=== PATIENT | male | born 1960 | race Caucasian/White ===

== ENCOUNTER → 2017-07-27 | Outpatient (CLI) | payer OTHER ==
--- NOTE | 2017-07-29 09:16 | XR ---
EXAMINATION TYPE: XR knee complete RT DATE OF EXAM: 07/27/2017 COMPARISON: NONE HISTORY: Chronic knee pain TECHNIQUE: Four views are submitted. FINDINGS: Osseous structures are intact. No acute fracture seen. Deformity of the proximal fibula appears chr onic. There is narrowing of the joint spaces. Mild hypertrophic changes seen. IMPRESSION: 1. No acute fracture or dislocation. Related for osteoarthritis. Could not exclude osteochondritis d issecans of the medial femoral condyle. Consider MRI follow-up.
== END | disposition home or self-care (01) ==
LOC: RADXRYALE 16:05
PROVIDERS: ATTEND Family Medicine
DX: M25.561 Pain in right knee (principal)

== ENCOUNTER → 2018-02-17 | Outpatient (CLI) | payer OTHER ==
--- NOTE | 2018-02-19 08:34 | MR ---
EXAMINATION TYPE: MR knee RT wo con DATE OF EXAM: 02/17/2018 COMPARISON: Outside radiographs of the right knee dated 02/01/2018. Right knee radiographs dated 017 (tricompartmental arthropathy) HISTORY: Right knee pain located behind the knee with knee swelling. No prior surgery. TECHNIQUE: Multiplanar, multisequence imaging of the right knee is performed without IV contrast. FINDINGS: MEDIAL MENISCUS: There is an obliquely oriented tear of the posterior horn of the medial meniscus wit h extension into the meniscal body as there is undulation of the meniscal body and cranial component. There is associated 4 mm mm meniscal extrusion Anterior horn and anterior root are intact and unrema rkable in signal as well as morphology. LATERAL MENISCUS: Anterior and posterior horns are intact without tear. CRUCIATE LIGAMENTS: The anterior and posterior cruciate ligaments are intact although there is abnorm al signal of the anterior cruciate ligament throughout indicative of mucoid degeneration. COLLATERAL LIGAMENTS: The medial collateral ligament and lateral collateral ligament complex are inta ct and unremarkable. Very minimal increased signal is seen superficial to the medial collateral ligam ent. EXTENSOR MECHANISM: Visualized quadriceps and patellar tendons are intact. EFFUSION: There is a small suprapatellar joint effusion without internal complexity POPLITEAL CYST: No significant popliteal/neves cyst. TRICOMPARTMENT SPACES: There is medial compartment joint space narrowing and small marginal osteophyt es of the tricompartmental spaces. The trochlear inclination angle is 21 degrees and no trochlear dys plasia is identified although there is slight medialization of the patellar apex. Retinacula appear i ntact. CARTILAGE: There is a large full-thickness cartilaginous defect of the weightbearing surface of the m edial femoral condyle measuring 2.8 x 1.8 cm. Multifocal fissuring and undermining are seen of the la teral femoral condylar cartilage with underlying subchondral cyst formation. There is slight signal h eterogeneity of the trochlear cartilage. Patellar cartilage is intact. BONE MARROW SIGNAL: Subchondral cysts are seen within the lateral femoral condyle and intercondylar n otch. A solitary small subchondral cyst is also seen within the medial femoral condyle. IMPRESSION: 1. Obliquely oriented tear of the posterior horn of the medial meniscus with 4 mm of associated menis derek extrusion and radial tear of the meniscal body. No extent into the meniscal root. 2. Tricompartmental chondrosis and moderate arthrosis with full-thickness cartilaginous defect of the weightbearing surface of the medial femoral condyle measuring 2.8 x 1.8 cm and multifocal fissuring as well as undermining of the lateral femoral condyle with subchondral cyst formation. 3. Medialization of the patellar apex without evidence of trochlear dysplasia nor retinacular tear. O nly mild trochlear chondrosis is seen. 4. Diffuse abnormal signal of the anterior cruciate ligament indicative of mucoid degeneration withou t tear. 5. Scant amount of fluid superficial to the medial collateral ligament that could relate to minimal M CL bursitis. 6. Small uncomplicated suprapatellar joint effusion.
== END | disposition home or self-care (01) ==
LOC: RADMRIMAIN 14:46
PROVIDERS: ATTEND Orthopaedic Surgery
DX: S83.241A Other tear of medial meniscus, current injury, right knee, initial encounter (principal); M17.11 Unilateral primary osteoarthritis, right knee

== ENCOUNTER → 2019-10-19 | Outpatient (CLI) | payer OTHER ==
--- NOTE | 2019-10-19 10:31 | MR ---
MR brain without contrast HISTORY: Mild cognitive measurement, memory loss Of the plantar multisequence imaging obtained through the brain Correlation to prior MR brain dated 06/28/2011 There is no restricted diffusion. No hemorrhage or hydrocephalus. There are 3-5 hyperintensities in t he subcortical, periventricular white matter on inversion recovery T2-weighted sequences. Corpus call osum, pituitary, cervical medullary junction, cerebellopontine angles are unremarkable. There is no h emorrhage or hydrocephalus. There are normal vascular flow voids. Inflammatory change present in the mastoid air cells right greater than left, maxillary sinuses right greater than left, ethmoid air lubna ls and frontal sinus. Orbits show symmetric appearance. IMPRESSION: Nonspecific white matter demyelination could be related to migraine headaches, hypertensi on vasculitis, Lyme disease, multiple sclerosis felt to be less likely. Sinus disease, correlate for mastoiditis.
--- NOTE | 2019-10-19 13:49 | US ---
EXAMINATION TYPE: US carotid duplex BILAT DATE OF EXAM: 10/19/2019 COMPARISON: Prior carotid Doppler 06/28/2011 CLINICAL HISTORY: Mild Cognitive Impairment G31.84,R42 Dizziness. DIZZY, FINGER NUMBNESS, NO H/O STRO KE EXAM MEASUREMENTS: RIGHT: Peak Systolic Velocity (PSV) cm/sec ----- Right CCA: 84.1 ----- Right ICA: 106.6 ----- Right ECA: 92.2 ICA/CCA ratio: 1.3 RIGHT: End Diastole cm/sec ----- Right CCA: 29.1 ----- Right ICA: 43.1 ----- Right ECA: 28.5 LEFT: Peak Systolic Velocity (PSV) cm/sec ----- Left CCA: 74.5 ----- Left ICA: 114.2 ----- Left ECA: 118.7 ICA/CCA ratio: 1.5 LEFT: End Diastole cm/sec ----- Left CCA: 29.9 ----- Left ICA: 64.6 ----- Left ECA: 33.2 VERTEBRALS (direction of flow): Right Vertebral: Antegrade Left Vertebral: Antegrade Rhythm: Normal Mild homogeneous plaque seen, with no significant stenosis. Grayscale, color Doppler, spectral Doppler imaging performed of the carotid arteries. Waveform analys is does not show significant stenosis of the internal carotid arteries by Doppler criteria. IMPRESSION: No hemodynamic significant stenosis of the proximal internal carotid arteries by Doppler criteria, an indirect measurement of carotid stenosis
== END | disposition home or self-care (01) ==
LOC: RADMRIMAIN 08:50
PROVIDERS: ATTEND Family Medicine
DX: G37.8 Other specified demyelinating diseases of central nervous system (principal); G31.84 Mild cognitive impairment of uncertain or unknown etiology
CPT/HCPCS: 70551; 93880

== ENCOUNTER → 2019-10-19 | Outpatient (CLI) | payer OTHER ==
--- NOTE | 2019-10-19 14:14 | ECHOS ---
STRESS ECHOCARDIOGRAM INDICATIONS: Dizziness BASELINE HEART RATE: 61 BASELINE BLOOD PRESSURE: 179/90 MAXIMUM HEART RATE: 142 MAXIMUM BLOOD PRESSURE: 200/68 85% MPHR: 137 100% MPHR: 161 METS: 9.1 MAXIMUM STAGE REACHED: 3 TOTAL EXERCISE TIME: 7:30 CLINICAL INFORMATION: STRESS DATA: Heart rate 61, pressure is 179/90 mmHg. Baseline EKG showed sinus mechanism. The patient exercised on the treadmill according to He protocol for a total of 7 minutes and achieved 9.1 METS. Max heart rate was 142, which is about 88% of maximum predicted heart rate. Maximum blood pressure was 200/68 mmHg. Clinically, the patient did not have any symptoms. The EKG did not show any significant ST or T- wave abnormalities concerning for ischemia. ECHOCARDIOGRAM IMAGES: On echo from parasternal long axis view, parasternal short axis view, apical 4 chamber and apical 2 chamber were obtained as the baseline images, at the peak of the heart rate as well as on recovery and the echocardiogram images showed good augmentation in the left ventricular systolic function without any evidence of wall motion abnormalities concerning for ischemia. CONCLUSION: 1. Good exercise tolerance. 2. Normal EKG in response to exercise. 3. Normal echocardiogram in response to exercise. 4. Essentially normal stress echocardiogram for the patient. MMODL / IJN: [id number] /
== END | disposition home or self-care (01) ==
LOC: RADNMMAIN 08:54
PROVIDERS: ATTEND Family Medicine
DX: R42 Dizziness and giddiness (principal); G31.84 Mild cognitive impairment of uncertain or unknown etiology
CPT/HCPCS: 93351

== ENCOUNTER 2020-02-20 15:16 | Inpatient (IN) | payer OTHER ==
[2020-02-20] MEDS ORDERED: ACETAMINOPHEN TAB 500 MG TAB PO STA (16:31)
[2020-02-20] MEDS ORDERED: SODIUM CHLORIDE 0.9% 500 ML 500 ML IV STA (16:31)
--- NOTE | 2020-02-20 16:33 | ED ---
SOB HPI - General Chief Complaint: Shortness of Breath Stated Complaint: shortness of breath, COVID Time Seen by Provider: 02/20/20 16:06 Source: patient, RN notes reviewed Mode of arrival: ambulatory Limitations: no limitations - History of Present Illness Initial Comments: This is a 59-year-old male with no personal history of lung disease who presents with complaints of not feeling well. He was tested for covid 19 4 days ago and reported yesterday that it is positive. He complains of nausea vomiting and generalized body aches headache decreased oral intake fevers no sore throat however. No rhinorrhea. He generally doesn't feel well he has exertional dyspnea. No overt phlegm production with a cough however. 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 MD Complaint: shortness of breath - Related Data Home Medications Medication Instructions Recorded Confirmed Levothyroxine Sodium [Synthroid] 88 mcg PO DAILY 06/23/14 03/24/16 Multivitamin [Men's Multi-Vitamin] 1 tab PO DAILY 06/23/14 03/24/16 ALPRAZolam 0.5 mg PO BID PRN 09/05/15 03/24/16 Loratadine [Claritin] 10 mg PO DAILY 09/05/15 03/24/16 [place]-3 Fatty Acids/Fish Oil [Fish 1 cap PO DAILY 09/05/15 03/24/16 Oil 1,000 mg Softgel] Potassium 99 mg PO DAILY 09/05/15 03/24/16 [place] 500 mg PO DAILY 09/05/15 03/24/16 Triazolam 0.375 mg PO HS PRN 09/05/15 03/24/16 Aspirin EC [Ecotrin] 81 mg PO DAILY 03/24/16 03/24/16 Atorvastatin [Lipitor] 40 mg PO HS 03/24/16 03/24/16 Docusate [Colace] 100 mg PO DAILY PRN 03/24/16 03/24/16 Famotidine [Pepcid] 20 mg PO DAILY PRN 03/24/16 03/24/16 HYDROcodone/APAP 7.5-325MG [[place] 1 - 2 tab PO Q6HR PRN 03/24/16 03/24/16 7.5] Magnesium Gluconate [Magonate] 500 mg PO DAILY 03/24/16 03/24/16 Previous Rx's Medication Instructions Recorded Hydrocodone/Acetaminophen [[place] 1 each PO Q6HR PRN #20 tab 03/24/16 5-325] Ketorolac [Toradol] 10 mg PO Q6HR #20 tab 03/24/16 Ondansetron Odt [Zofran ODT] 4 mg PO Q8HR PRN #20 tab 03/24/16 Tamsulosin HCl [Flomax] 0.4 mg PO DAILY #10 cap 03/24/16 Allergies Allergy/AdvReac Type Severity Reaction Status Date / Time morphine AdvReac Nausea Verified 02/20/20 15:24 Review of Systems ROS Statement: Those systems with pertinent positive or pertinent negative responses have been documented in the HPI. ROS Other: All systems not noted in ROS Statement are negative. Past Medical History Past Medical History: No Reported History, Hyperlipidemia, Osteoarthritis (OA), Thyroid Disorder History of Any Multi-Drug Resistant Organisms: None Reported Past Surgical History: Orthopedic Surgery Additional Past Surgical History / Comment(s): Tendon repair R ankle 05/24/14 knee replacement Past Anesthesia/Blood Transfusion Reactions: No Reported Reaction Past Psychological History: No Psychological Hx Reported Smoking Status: Never smoker Past Alcohol Use History: Occasional Past Drug Use History: None Reported - Past Family History Mother Family Medical History: No Reported History General Exam - General Exam Comments Initial Comments: This is a well-developed well-nourished awake alert oriented 3 male Limitations: no limitations General appearance: alert, anxious Head exam: Present: atraumatic, normocephalic, normal inspection Eye exam: Present: normal appearance, PERRL, EOMI. Absent: scleral icterus, conjunctival injection, periorbital swelling ENT exam: Present: mucous membranes dry Neck exam: Present: normal inspection. Absent: tenderness, meningismus, lymphadenopathy Respiratory exam: Present: normal lung sounds bilaterally. Absent: respiratory distress, wheezes, rales, rhonchi, stridor Cardiovascular Exam: Present: regular rate, normal rhythm, normal heart sounds. Absent: systolic murmur, diastolic murmur, rubs, gallop, clicks GI/Abdominal exam: Present: soft, normal bowel sounds. Absent: distended, tenderness, guarding, rebound, rigid Extremities exam: Present: normal inspection, full ROM, normal capillary refill. Absent: tenderness, pedal edema, joint swelling, calf tenderness Back exam: Present: normal inspection Neurological exam: Present: alert, oriented X3, CN II-XII intact Psychiatric exam: Present: normal affect, normal mood Skin exam: Present: warm, dry, intact, normal color. Absent: rash Course Vital Signs 02/20/20 02/20/20 02/20/20 15:20 16:50 18:00 Temperature 98.0 F Pulse Rate 65 60 53 L Respiratory 18 18 18 Rate Blood Pressure 118/83 121/75 117/82 O2 Sat by Pulse 95 93 L 96 Oximetry 02/20/20 19:00 Temperature Pulse Rate 52 L Respiratory 18 Rate Blood Pressure 116/73 O2 Sat by Pulse 96 Oximetry Medical Decision Making - Medical Decision Making I did discuss the findings with the patient. Also with Dr. Escalera the patient will be admitted for inpatient treatment of pneumonia - Lab Data Result diagrams: 02/20/20 16:44 02/20/20 16:44 Lab Results 02/20/20 02/20/20 02/20/20 Range/Units 16:44 16:44 16:44 WBC 6.2 (3.8-10.6) k/uL RBC 4.85 (4.30-5.90) m/uL Hgb 15.0 (13.0-17.5) gm/dL Hct 44.0 (39.0-53.0) % MCV 90.8 (80.0-100.0) fL MCH 30.9 (25.0-35.0) pg MCHC 34.1 (31.0-37.0) g/dL RDW 12.4 (11.5-15.5) % Plt Count 287 (150-450) k/uL Neutrophils % 67 % Lymphocytes % 17 % Monocytes % 10 % Eosinophils % 1 % Basophils % 1 % Neutrophils # 4.1 (1.3-7.7) k/uL Lymphocytes # 1.0 (1.0-4.8) k/uL Monocytes # 0.6 (0-1.0) k/uL Eosinophils # 0.1 (0-0.7) k/uL Basophils # 0.1 (0-0.2) k/uL PT 9.9 (9.0-12.0) sec INR 0.9 (<1.2) APTT 24.8 (22.0-30.0) sec D-Dimer 0.31 (<0.60) mg/L FEU Sodium 134 L (137-145) mmol/L Potassium 4.0 (3.5-5.1) mmol/L Chloride 99 (98-107) mmol/L Carbon Dioxide 26 (22-30) mmol/L Anion Gap 9 mmol/L BUN 17 (9-20) mg/dL Creatinine 0.63 L (0.66-1.25) mg/dL Est GFR (CKD-EPI)AfAm >90 (>60 ml/min/1.73 sqM) Est GFR (CKD-EPI)NonAf >90 (>60 ml/min/1.73 sqM) Glucose 94 (74-99) mg/dL Plasma Lactic Acid Kevin (0.7-2.0) mmol/L Calcium 8.7 (8.4-10.2) mg/dL Magnesium 2.2 (1.6-2.3) mg/dL Total Bilirubin 0.8 (0.2-1.3) mg/dL AST 42 (17-59) U/L ALT 36 (4-49) U/L Alkaline Phosphatase 84 (38-126) U/L Lactate Dehydrogenase 656 H (313-618) U/L Creatine Kinase 65 (55-170) U/L Troponin I (0.000-0.034) ng/mL C-Reactive Protein 63.3 H (<10.0) mg/L Total Protein 6.8 (6.3-8.2) g/dL Albumin 3.9 (3.5-5.0) g/dL 02/20/20 02/20/20 Range/Units 16:44 16:44 WBC (3.8-10.6) k/uL RBC (4.30-5.90) m/uL Hgb (13.0-17.5) gm/dL Hct (39.0-53.0) % MCV (80.0-100.0) fL MCH (25.0-35.0) pg MCHC (31.0-37.0) g/dL RDW (11.5-15.5) % Plt Count (150-450) k/uL Neutrophils % % Lymphocytes % % Monocytes % % Eosinophils % % Basophils % % Neutrophils # (1.3-7.7) k/uL Lymphocytes # (1.0-4.8) k/uL Monocytes # (0-1.0) k/uL Eosinophils # (0-0.7) k/uL Basophils # (0-0.2) k/uL PT (9.0-12.0) sec INR (<1.2) APTT (22.0-30.0) sec D-Dimer (<0.60) mg/L FEU Sodium (137-145) mmol/L Potassium (3.5-5.1) mmol/L Chloride (98-107) mmol/L Carbon Dioxide (22-30) mmol/L Anion Gap mmol/L BUN (9-20) mg/dL Creatinine (0.66-1.25) mg/dL Est GFR (CKD-EPI)AfAm (>60 ml/min/1.73 sqM) Est GFR (CKD-EPI)NonAf (>60 ml/min/1.73 sqM) Glucose (74-99) mg/dL Plasma Lactic Acid Kevin 0.9 (0.7-2.0) mmol/L Calcium (8.4-10.2) mg/dL Magnesium (1.6-2.3) mg/dL Total Bilirubin (0.2-1.3) mg/dL AST (17-59) U/L ALT (4-49) U/L Alkaline Phosphatase (38-126) U/L Lactate Dehydrogenase (313-618) U/L Creatine Kinase (55-170) U/L Troponin I <0.012 (0.000-0.034) ng/mL C-Reactive Protein (<10.0) mg/L Total Protein (6.3-8.2) g/dL Albumin (3.5-5.0) g/dL - EKG Data -: EKG Interpreted by Me EKG shows normal: sinus rhythm EKG Comments: Says bradycardia rate of 59. Interval 170 QRS duration 94 QT since QTC 432/[address]-T wave changes - Radiology Data Radiology results: report reviewed (I did review the imaging and report multifocal pneumonia is noted.), image reviewed Disposition Clinical Impression: Pneumonia, COVID-19 virus infection, Failure of outpatient treatment Disposition: ADMITTED IP TO THIS HOSP Condition: Fair Referrals: Blake Calles DO [Primary Care Provider] - 1-2 days
[2020-02-20] MEDS: SODIUM CHLORIDE 0.9% 1,000 ML IV STA ×2 (16:48→22:41)
[2020-02-20 16:58] LABS: Basophils # (A) 0.1 k/uL (0-0.2); Basophils % (A) 1 %; Eosinophils # (A) 0.1 k/uL (0-0.7); Eosinophils % (A) 1 %; Lymphocytes % (A) 17 %; MCH 30.9 pg (25.0-35.0); MCHC 34.1 g/dL (31.0-37.0); MCV 90.8 fL (80.0-100.0); Mean Platelet Volume 7.6; Monocytes # (A) 0.6 k/uL (0-1.0); Monocytes % (A) 10 %; Neutrophils # (A) 4.1 k/uL (1.3-7.7); Neutrophils % (A) 67 %; Platelet Count 287 k/uL (150-450); RBC 4.85 m/uL (4.30-5.90); RDW 12.4 % (11.5-15.5); WBC 6.2 k/uL (3.8-10.6)
[2020-02-20 17:13] LABS: ALT 36 U/L (4-49); AST 42 U/L (17-59); African American GFR (CKD) >90 (>60 ml/min/1.73 sqM); Albumin 3.9 g/dL (3.5-5.0); Alkaline Phosphatase 84 U/L (38-126); Anion Gap 9 mmol/L; Blood Urea Nitrogen 17 mg/dL (9-20); C Reactive Protein 63.3 mg/L (<10.0); Calcium 8.7 mg/dL (8.4-10.2); Carbon Dioxide 26 mmol/L (22-30); Chloride 99 mmol/L (98-107); Creatine Kinase 65 U/L (55-170); Glucose 94 mg/dL (74-99); LDH 656 U/L (313-618); Magnesium 2.2 mg/dL (1.6-2.3); Non-African American GFR(CKD) >90 (>60 ml/min/1.73 sqM); Sodium 134 mmol/L (137-145); Total Bilirubin 0.8 mg/dL (0.2-1.3); Total Protein 6.8 g/dL (6.3-8.2)
[2020-02-20 17:15] LABS: D-Dimer 0.31 mg/L FEU (<0.60); INR 0.9 (<1.2); Partial Thromboplastin Time 24.8 sec (22.0-30.0); Prothrombin Time 9.9 sec (9.0-12.0)
--- NOTE | 2020-02-20 17:17 | XR ---
EXAMINATION TYPE: XR chest 1V portable DATE OF EXAM: 02/20/2020 Comparison: 02/15/2016 Clinical History: 59-year-old male Suspected COVID-19 pneumonia, increased shortness of breath and co ugh. Findings: Heart normal size. Very mild interstitial opacity in the periphery of the upper and lower lungs. No p leural effusion. Impression: Subtle areas of peripheral interstitial infiltrate. Early atypical pneumonia not excluded.
[2020-02-20] MEDS ORDERED: cefTRIAXone IN SWFI 1,000 MG/10 ML SYRINGE IVP STA (21:04)
[2020-02-20] MEDS ORDERED: ALBUTEROL HFA INHALER INHALATION PRN (21:06)
[2020-02-20] MEDS ORDERED: ONDANSETRON 4 MG/2 ML VIAL IVP PRN (22:58)
[2020-02-20] MEDS: HYDROcodone/APAP 7.5-325MG 1 EACH TAB PO PRN (23:21)
[2020-02-20 23:47] LABS: Ferritin 333.9 ng/mL (22.0-322.0)
[2020-02-21] MEDS: HYDROcodone/APAP 7.5-325MG 1 EACH TAB PO PRN ×3 (04:46→20:34)
[2020-02-21] MEDS: HYDROXYCHLOROQUINE SULFATE 200 MG TAB PO SCH ×2 (09:29→20:36)
--- NOTE | 2020-02-21 11:32 | P.CNPUL ---
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 Patient was tested for COVID 19 at [facility] drive-through last , 02/16/2020, after he started having symptoms of generalized weakness, body aches, chills, headaches, shortness of breath, nausea and vomiting, patient [facility], was advised to go to t he drive-through at the [facility]. His test yesterday was reported positive. Patient has exertional dyspnea, and generally doesn't feel well. Has a dry cough, no phlegm production. His past medical history includes hyperlipidemia, osteoarthritis with history of left knee replacement, and right ankle tendon repair surgery. Chest x-ray showed subtle areas of peripheral interstitial infiltrate. Blood work showed a CBC within normal limits, white count was 6.2, hemoglobin was 15.0, lymphocyte count was within normal limits at 1.0, coagulation profile was within normal limits, d-dimer was within normal limits at 0.31, serum sodium was 134, the rest of electrolytes were within normal limits, BUN was 17 creatinine 0.63, plasma lactic acid was 0.9, ferritin level was elevated at 339, LFTs were within normal limits, lactate dehydrogenase was elevated at 656, troponin was less than 0.012, C-reactive protein was 63.3, pro-calcitonin was negative at 0.06. Patient has been afebrile, he was placed on supplemental oxygen, and his pulse ox at one time was 93% on 2 L. Patient has been started on Plaquenil, Rocephin, and we are asked to see the patient in evaluation for for dyspnea due to to Covid 19 related infection Review of Systems All systems: negative Constitutional: Reports fatigue, Reports malaise, Reports weakness, Denies chills, Denies fever Eyes: denies blurred vision, denies pain Ears, nose, mouth and throat: Denies headache, Denies sore throat Cardiovascular: Denies chest pain, Denies shortness of breath Respiratory: Reports dyspnea, Denies cough Gastrointestinal: Reports nausea, Reports vomiting, Denies abdominal pain, Denies diarrhea Musculoskeletal: Denies myalgias Integumentary: Denies pruritus, Denies rash Neurological: Denies numbness, Denies weakness Psychiatric: Denies anxiety, Denies depression Endocrine: Denies fatigue, Denies weight change Past Medical History Past Medical History: No Reported History, Hyperlipidemia, Osteoarthritis (OA), Thyroid Disorder History of Any Multi-Drug Resistant Organisms: None Reported Past Surgical History: Orthopedic Surgery Additional Past Surgical History / Comment(s): Tendon repair R ankle 05/24/14 knee replacement Past Anesthesia/Blood Transfusion Reactions: No Reported Reaction Past Psychological History: No Psychological Hx Reported Smoking Status: Never smoker Past Alcohol Use History: Occasional Past Drug Use History: None Reported - Past Family History Mother Family Medical History: No Reported History Medications and Allergies Home Medications Medication Instructions Recorded Confirmed Type Levothyroxine Sodium [Synthroid] 88 mcg PO DAILY 06/23/14 02/20/20 History Potassium 99 mg PO DAILY 09/05/15 02/20/20 History Saw [place] 500 mg PO DAILY 09/05/15 02/20/20 History Aspirin EC [Ecotrin] 81 mg PO DAILY 03/24/16 02/20/20 History Atorvastatin [Lipitor] 40 mg PO HS 03/24/16 02/20/20 History Magnesium Gluconate [Magonate] 500 mg PO DAILY 03/24/16 02/20/20 History Cyanocobalamin (Vitamin B-12) 5,000 mcg PO DAILY 02/20/20 02/20/20 History [Vitamin B-12] HYDROcodone/APAP 10-325MG [[place] 1 - 2 tab PO Q8H PRN 02/20/20 02/20/20 History 10-325] Meloxicam 15 mg PO DAILY 02/20/20 02/20/20 History Triazolam 0.25 mg PO HS PRN 02/20/20 02/20/20 History Vitamin B Complex 1 cap PO DAILY 02/20/20 02/20/20 History Vitamin E 2,000 unit PO DAILY 02/20/20 02/20/20 History Allergies Allergy/AdvReac Type Severity Reaction Status Date / Time morphine AdvReac Nausea Verified 02/20/20 22:33 Physical Exam Vitals: Vital Signs Temp Pulse Pulse Resp BP BP Pulse Ox 02/21/20 10:55 98.3 F 56 L 18 114/66 95 02/21/20 07:00 98.2 F 56 L 19 109/66 97 02/21/20 02:35 97.7 F 50 L 20 127/78 98 02/21/20 00:00 18 02/20/20 22:17 97.9 F 54 L 20 119/72 98 02/20/20 22:15 97.9 F 54 L 20 119/72 98 02/20/20 21:00 50 L 15 120/73 98 02/20/20 20:00 53 L 16 118/79 97 02/20/20 19:00 52 L 18 116/73 96 02/20/20 18:00 53 L 18 117/82 96 02/20/20 16:50 60 18 121/75 93 L 02/20/20 15:20 98.0 F 65 18 118/83 95 Intake and Output 02/20/20 02/21/20 02/21/20 22:59 06:59 14:59 Intake Total 100 Output Total 300 Balance -200 Intake: Oral 100 Output: Urine 300 Other: Voiding Method Toilet # Voids 1 Weight 111.13 kg GENERAL EXAM: Alert, very pleasant, 59-year-old white male, on 2 L, with a pulse ox 95% comfortable in no apparent distress. HEAD: Normocephalic/atraumatic. EYES: Normal reaction of pupils, equal size. Conjunctiva pink, sclera white. NOSE: Clear with pink turbinates. THROAT: No erythema or exudates. NECK: No masses, no JVD, no thyroid enlargement, no adenopathy. CHEST: No chest wall deformity. Symmetrical expansion. LUNGS: Equal air entry with no crackles, wheeze, rhonchi or dullness. CVS: Regular rate and rhythm, normal S1 and S2, no gallops, no murmurs, no rubs ABDOMEN: Soft, nontender. No hepatosplenomegaly, normal bowel sounds, no guarding or rigidity. EXTREMITIES: No clubbing, no edema, no cyanosis, 2+ pulses and upper and lower extremities. MUSCULOSKELETAL: Muscle strength and tone normal. SPINE: No scoliosis or deformity SKIN: No rashes CENTRAL NERVOUS SYSTEM: Alert and oriented -3. No focal deficits, tone is normal in all 4 extremities. PSYCHIATRIC: Alert and oriented -3. Appropriate affect. Intact judgment and insight. Results - Laboratory Findings CBC and BMP: 02/20/20 16:44 02/20/20 16:44 PT/INR, D-dimer PT 9.9 sec (9.0-12.0) 02/20/20 16:44 INR 0.9 (<1.2) 02/20/20 16:44 D-Dimer 0.31 mg/L FEU (<0.60) 02/20/20 16:44 Abnormal lab findings: Abnormal Labs 02/20/20 16:44 Sodium 134 L Creatinine 0.63 L Ferritin 333.9 H Lactate Dehydrogenase 656 H C-Reactive Protein 63.3 H - Diagnostic Findings Chest x-ray: report reviewed, image reviewed Additional studies: EKG reviewed Assessment and Plan Plan: Assessment: #1. Acute hypoxic respiratory failure related to acute COVID 19 related pneumonitis #2. Elevated ferritin, LDH, CRP related to the Covid 19 infection #3. Shortness of breath, body aches, nausea, vomiting, chills, headaches, generalized fatigue and weakness related to acute Covid 19 infection #4. Hyperlipidemia #5. History of osteoarthritis, with history of left knee replacement and right tendon repair surgery Plan: Continue with Plaquenil, continue with antibiotics, chest x-ray has been reviewed showing subtle areas of peripheral interstitial infiltrates. The patient is on room air, appears to be in no acute distress, afebrile, we'll add IV steroids of 40 mg twice daily. We'll repeat d-dimer, CRP and LDH tomorrow we'll continue to follow clinical course I performed a history & physical examination of the patient and discussed their management with my nurse practitioner, Estefanía Washington. I reviewed the nurse practitioner's note and agree with the documented findings and plan of care. Lung sounds are positive for diminished breath sounds. The findings and the impression was discussed with the patient. I attest to the documentation by the nurse practitioner. Time with Patient: Greater than 30
[2020-02-21] MEDS: methylPREDNISolone SOD SUCCI 40 MG/ML 1 ML VIAL IV SCH ×2 (11:46→20:34)
[2020-02-21 16:36] LABS: Glucose,Whole Blood 145 mg/dL (75-99)
[2020-02-21 20:05] LABS: Glucose,Whole Blood 140 mg/dL (75-99)
--- NOTE | 2020-02-21 23:36 | P.HPIM ---
History of Present Illness H&P Date: 02/21/20 Chief Complaint: Shortness of breath, nausea vomiting and generalized aches Patient is a 59-year-old male with a known history of hypothyroidism, osteoarthritis, hyperlipidemia came to ER with complaints of worsening shortness of breath, generalized weakness and body aches and fever, chills. Patient was also having nausea and vomiting episodes. 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 Due to possible exposure patient had Covid [address] [facility] drive-through on 02/16/2020. His test yesterday was reported positive. Patient says that he doesn't feel well. Was complaining of nausea and vomiting and then lies body aches, on and off headaches as well as decreased oral intake. No complaints of sore throat. Does have subjective fevers. Also having exertional exertional dyspnea. Does have cough without sputum production. Chest x-ray showed subtle areas of peripheral interstitial infiltrate. Laboratory data showed WBC 6.2, hemoglobin 14.0, lymphocyte count absolute within normal limits at 1.0 D-dimer is not elevated. BUN 17 and creatinine 0.63 lactic acid 0.9, ferritin 339 LFTs within normal limits. LDH 656, troponin 1 negative CRP 63.3 and a pro-calcitonin 0.06 negative. Currently patient has been afebrile. On supplemental oxygen via nasal cannula. Review of Systems Constitutional: Patient does have subjective fevers and chills, generalized weakness and malaise, body aches. Abdomen: Does have nausea vomiting and no diarrhea no abdominal pain.. Cardiovascular: Patient denies any chest pain or short of breath no palpitations. Respiratory: Cough without sputum production and shortness of breath Neurologic: Patient denied any numbness or tingling headache. Musculoskeletal: Patient denies any complaints of joint swelling or deformity. Skin: Negative Psychiatric: Negative Endocrine: No heat or cold intolerance. No recent weight gain. Genitourinary: No dysuria or hematuria. All other 14 point ROS negative except the above Past Medical History Past Medical History: No Reported History, Hyperlipidemia, Osteoarthritis (OA), Thyroid Disorder History of Any Multi-Drug Resistant Organisms: None Reported Past Surgical History: Orthopedic Surgery Additional Past Surgical History / Comment(s): Tendon repair R ankle 05/24/14 knee replacement Past Anesthesia/Blood Transfusion Reactions: No Reported Reaction Past Psychological History: No Psychological Hx Reported Smoking Status: Never smoker Past Alcohol Use History: Occasional Past Drug Use History: None Reported - Past Family History Mother Family Medical History: No Reported History Medications and Allergies Home Medications Medication Instructions Recorded Confirmed Type Levothyroxine Sodium [Synthroid] 88 mcg PO DAILY 06/23/14 02/20/20 History Potassium 99 mg PO DAILY 09/05/15 02/20/20 History Saw [facility] 500 mg PO DAILY 09/05/15 02/20/20 History Aspirin EC [Ecotrin] 81 mg PO DAILY 03/24/16 02/20/20 History Atorvastatin [Lipitor] 40 mg PO HS 03/24/16 02/20/20 History Magnesium Gluconate [Magonate] 500 mg PO DAILY 03/24/16 02/20/20 History Cyanocobalamin (Vitamin B-12) 5,000 mcg PO DAILY 02/20/20 02/20/20 History [Vitamin B-12] HYDROcodone/APAP 10-325MG [[place] 1 - 2 tab PO Q8H PRN 02/20/20 02/20/20 History 10-325] Meloxicam 15 mg PO DAILY 02/20/20 02/20/20 History Triazolam 0.25 mg PO HS PRN 02/20/20 02/20/20 History Vitamin B Complex 1 cap PO DAILY 02/20/20 02/20/20 History Vitamin E 2,000 unit PO DAILY 02/20/20 02/20/20 History Allergies Allergy/AdvReac Type Severity Reaction Status Date / Time morphine AdvReac Nausea Verified 02/20/20 22:33 Physical Exam Vitals: Vital Signs Temp Pulse Pulse Resp BP BP Pulse Ox 02/21/20 10:55 98.3 F 56 L 18 114/66 95 02/21/20 07:00 98.2 F 56 L 19 109/66 97 02/21/20 02:35 97.7 F 50 L 20 127/78 98 02/21/20 00:00 18 02/20/20 22:17 97.9 F 54 L 20 119/72 98 02/20/20 22:15 97.9 F 54 L 20 119/72 98 02/20/20 21:00 50 L 15 120/73 98 02/20/20 20:00 53 L 16 118/79 97 02/20/20 19:00 52 L 18 116/73 96 02/20/20 18:00 53 L 18 117/82 96 02/20/20 16:50 60 18 121/75 93 L 02/20/20 15:20 98.0 F 65 18 118/83 95 Intake and Output 02/20/20 02/21/20 02/21/20 22:59 06:59 14:59 Intake Total 100 Output Total 300 Balance -200 Intake: Oral 100 Output: Urine 300 Other: Voiding Method Toilet # Voids 1 Weight 111.13 kg PHYSICAL EXAMINATION: Patient is lying in the bed comfortably, mild distress, awake alert and oriented.. HEENT: Normocephalic. Neck is supple. Pupils reactive. Nostrils clear. Oral cavity is moist. Ears reveal no drainage. Neck reveals no JVD, carotid bruits, or thyromegaly. CHEST EXAMINATION: Trachea is central. Symmetrical expansion. Lung morrison clear to auscultation and percussion. Scattered crackles. CARDIAC: Normal S1, S2 with no gallops. No murmurs ABDOMEN: Soft. Bowel sounds normal. No organomegaly. No abdominal bruits. Extremities: reveal no edema. No clubbing or cyanosis Neurologically awake, alert, oriented x3 with well-coordinated movements. No focal deficits noted Skin: No rash or skin lesions. Psychiatric: Coperative. Nonsuicidal Musculoskeletal: No joint swelling or deformity. Normal range of motion. Results CBC & Chem 7: 02/20/20 16:44 02/20/20 16:44 Labs: Abnormal Lab Results - Last 24 Hours (Table) 02/20/20 Range/Units 16:44 Sodium 134 L (137-145) mmol/L Creatinine 0.63 L (0.66-1.25) mg/dL Ferritin 333.9 H (22.0-322.0) ng/mL Lactate Dehydrogenase 656 H (313-618) U/L C-Reactive Protein 63.3 H (<10.0) mg/L Thrombosis Risk Factor Assmnt - DVT/VTE Prophylaxis DVT/VTE Prophylaxis: Pharmacologic Prophylaxis ordered - Choose All That Apply Any of the Below Risk Factors Present?: Yes Each Factor Represents 1 point: Age 41-60 years, Serious lung disease incl. pneumonia (< 1month) Other Risk Factors: No Thrombosis Risk Factor Assessment Total Risk Factor Score: 2 Thrombosis Risk Factor Assessment Level: Low Risk Assessment and Plan Assessment: Acute hypoxic respiratory failure secondary to Covid 19 pneumonia. Chest x-ray showed peripheral interstitial infiltrates. Hyperlipidemia Osteoarthritis Hypothyroidism Elevated LDH, ferritin, CRP related to Covid 19 infection. Morbid obesity with BMI 35.2 DVT prophylaxis. On Lovenox Plan: Patient will be continued on hydroxychloroquine and IV steroids and Lovenox. Continue with supplemental oxygen as needed. Follow up labs tomorrow. Pulmonary is on board. Further recommendations based on the clinical course. Time with Patient: Greater than 30
[2020-02-22] MEDS ORDERED: TEMAZEPAM 30 MG CAP PO PRN (00:26)
[2020-02-22] MEDS ORDERED: TEMAZEPAM 15 MG CAP PO PRN (00:40)
[2020-02-22] MEDS ORDERED: LEVOTHYROXINE 88 MCG TAB PO SCH (06:30)
[2020-02-22 07:09] LABS: Glucose,Whole Blood 193 mg/dL (75-99)
[2020-02-22] MEDS: ENOXAPARIN 40 MG/0.4 ML SYRINGE SQ SCH ×2 (08:11→08:21)
[2020-02-22] MEDS: methylPREDNISolone SOD SUCCI 40 MG/ML 1 ML VIAL IV SCH (08:11)
[2020-02-22] MEDS: HYDROcodone/APAP 7.5-325MG 1 EACH TAB PO PRN (08:18)
[2020-02-22] MEDS ORDERED: HYDROXYCHLOROQUINE SULFATE 200 MG TAB PO SCH (09:00)
[2020-02-22 11:33] LABS: Ferritin 325.2 ng/mL (22.0-322.0)
--- NOTE | 2020-02-22 12:52 | P.PN ---
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 Patient was tested for COVID 19 at [facility] drive-through last , 02/16/2020, after he started having symptoms of generalized weakness, body aches, chills, headaches, shortness of breath, nausea and vomiting, patient co mmunicated with his PCP via [facility], was advised to go to the drive-through at the [facility]. His test yesterday was reported positive. Patient has exertional dyspnea, and generally doesn't feel well. Has a dry cough, no phlegm production. His past medical history includes hyperlipidemia, osteoarthritis with history of left knee replacement, and right ankle tendon repair surgery. Chest x-ray showed subtle areas of peripheral interstitial infiltrate. Blood work showed a CBC within normal limits, white count was 6.2, hemoglobin was 15.0, lymphocyte count was within normal limits at 1.0, coagulation profile was within normal limits, d-dimer was within normal limits at 0.31, serum sodium was 134, the rest of electrolytes were within normal limits, BUN was 17 creatinine 0.63, plasma lactic acid was 0.9, ferritin level was elevated at 339, LFTs were within normal limits, lactate dehydrogenase was elevated at 656, troponin was less than 0.012, C-reactive protein was 63.3, pro-calcitonin was negative at 0.06. Patient has been afebrile, he was placed o n supplemental oxygen, and his pulse ox at one time was 93% on 2 L. Patient has been started on Plaquenil, Rocephin, and we are asked to see the patient in evaluation for for dyspnea due to to Covid 19 related infection On 02/22/2020 patient seen in follow-up on general medical floor, he states he is feeling much better today, no body aches, no worsening shortness of breath, no significant cough, no nausea or vomiting, room air pulse ox is 97-98%, he's been afebrile, hemodynamically stable, his lab work has been reviewed, d-dimer is still within normal limits at 0.42, ferritin level is fairly stable at 325, LDH and CRP are trending down at 6:15 and 54 respectively, pro-calcitonin was negative at 0.06. Patient has been treated with Plaquenil, Rocephin, and IV steroids, he is improving, blood cultures have shown no growth, no acute events overnight, patient is stable for discharge home from pulmonary perspective and he can finish the course of Plaquenil Objective - Vital Signs Vital signs: Vital Signs Temp 97.9 F 02/22/20 07:00 Pulse 61 02/22/20 07:00 Resp 17 02/22/20 07:00 BP 133/87 02/22/20 07:00 Pulse Ox 97 02/22/20 07:53 Intake & Output 02/21/20 02/22/20 02/22/20 18:59 06:59 18:59 Intake Total 600 Output Total 1125 Balance 600 -1125 Intake: IV 600 Sodium Chloride 0.9% 1, 600 000 ml @ 75 mls/hr IV . [id number] STA Rx#:[id number] Output: Urine 1125 Other: Voiding Method Toilet Urinal # Voids 800 1 - Exam GENERAL EXAM: Alert, very pleasant, 59-year-old white male, with room air pulse ox 95% comfortable in no apparent distress. HEAD: Normocephalic/atraumatic. EYES: Normal reaction of pupils, equal size. Conjunctiva pink, sclera white. NOSE: Clear with pink turbinates. THROAT: No erythema or exudates. NECK: No masses, no JVD, no thyroid enlargement, no adenopathy. CHEST: No chest wall deformity. Symmetrical expansion. LUNGS: Equal air entry with no crackles, wheeze, rhonchi or dullness. CVS: Regular rate and rhythm, normal S1 and S2, no gallops, no murmurs, no rubs ABDOMEN: Soft, nontender. No hepatosplenomegaly, normal bowel sounds, no guarding or rigidity. EXTREMITIES: No clubbing, no edema, no cyanosis, 2+ pulses and upper and lower extremities. MUSCULOSKELETAL: Muscle strength and tone normal. SPINE: No scoliosis or deformity SKIN: No rashes CENTRAL NERVOUS SYSTEM: Alert and oriented -3. No focal deficits, tone is normal in all 4 extremities. PSYCHIATRIC: Alert and oriented -3. Appropriate affect. Intact judgment and insight. - Labs CBC & Chem 7: 02/20/20 16:44 02/20/20 16:44 Labs: Abnormal Lab Results - Last 24 Hours (Table) 02/21/20 02/21/20 02/22/20 Range/Units 16:34 20:03 05:36 POC Glucose (mg/dL) 145 H 140 H (75-99) mg/dL Ferritin 325.2 H (22.0-322.0) ng/mL Lactate Dehydrogenase 619 H (313-618) U/L C-Reactive Protein 54.0 H (<10.0) mg/L 02/22/20 Range/Units 07:07 POC Glucose (mg/dL) 193 H (75-99) mg/dL Ferritin (22.0-322.0) ng/mL Lactate Dehydrogenase (313-618) U/L C-Reactive Protein (<10.0) mg/L Microbiology - Last 24 Hours (Table) 02/20/20 16:44 Blood Culture - Preliminary Blood No Growth after 24 hours Assessment and Plan Plan: Assessment: #1. Acute hypoxic respiratory failure related to acute COVID 19 related pneumonitis, improved #2. Elevated ferritin, LDH, CRP related to the Covid 19 infection #3. Shortness of breath, body aches, nausea, vomiting, chills, headaches, generalized fatigue and weakness related to acute Covid 19 infection #4. Hyperlipidemia #5. History of osteoarthritis, with history of left knee replacement and right tendon repair surgery Plan: Today's labs have been reviewed, inflammatory markers are improving, denies ever is within normal limits, vital signs are stable, patient clinically is feeling better, no worsening shortness of breath, no nausea or vomiting, he has been afebrile, from pulmonary perspective he can be considered for discharge home to day and he can complete the course of Plaquenil, no antibiotics or steroids needed. Follow-up with Dr. Calles I performed a history & physical examination of the patient and discussed their management with my nurse practitioner, Estefanía Washington. I reviewed the nurse practitioner's note and agree with the documented findings and plan of care. Lung sounds are positive for diminished breath sounds. The findings and the impression was discussed with the patient. I attest to the documentation by the nurse practitioner. Time with Patient: Less than 30
[2020-02-22 13:01] VITALS: BP 128/77; PULSE 59; RESP 18; TEMP 98
== END 2020-02-22 14:45 | disposition home or self-care (01) | DRG 177 ==
LOC: EC 15:16 → 4SSUR 21:09
PROVIDERS: ADMIT Internal Medicine; ATTEND Internal Medicine
DX: U07.1 COVID-19 (principal); J12.89 Other viral pneumonia; J96.01 Acute respiratory failure with hypoxia; E03.9 Hypothyroidism, unspecified; E78.5 Hyperlipidemia, unspecified; M19.90 Unspecified osteoarthritis, unspecified site; R11.2 Nausea with vomiting, unspecified; E66.01 Morbid (severe) obesity due to excess calories; Z68.35 Body mass index [BMI] 35.0-35.9, adult; Z79.1 Long term (current) use of non-steroidal anti-inflammatories (NSAID); Z79.82 Long term (current) use of aspirin; Z79.890 Hormone replacement therapy; Z79.899 Other long term (current) drug therapy; Z96.652 Presence of left artificial knee joint
CPT/HCPCS: 36415; 71045; 80053; 82550; 82728; 83605; 83615; 83735; 84145; 84484; 85025; 85379; 85610; 85730; 86140; 87040; 93005; 94640; 94760; 96360; 96361; 99285

== ENCOUNTER 2020-04-13 08:02 | Day surgery (SDC) | payer OTHER ==
[2020-04-11 14:16] VITALS: BMI 34.4
--- NOTE | 2020-04-12 10:29 | HP ---
HISTORY AND PHYSICAL CHIEF COMPLAINT: Left shoulder pain. 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 He slipped and fell on some ice in the gas station parking lot, landing on his left side. He notes pain with overhead use and at night ever since. He also notes a catching sensation and significant weakness. He denies significant previous problems. He has been taking meloxicam and [place] for this. PAST MEDICAL HISTORY: Significant for hypertension and hypothyroidism along with arthritis. PAST SURGICAL HISTORY: Significant for left total knee arthroplasty and previous ankle surgery. CURRENT MEDICATIONS: Aspirin, Lipitor, meloxicam, [place], Synthroid, and Triazolam. He notes sensitivity to morphine; however, no lg drug allergies. FAMILY HISTORY: Significant for diabetes and heart disease. SOCIAL HISTORY: Significant for social alcohol use. 16 POINT REVIEW OF SYSTEMS: Otherwise reviewed and is noncontributory. PHYSICAL EXAMINATION: On examination, the patient is approximately 5 foot 10, 245 pounds of endomorphic habitus. HEENT: Exam is nonfocal. Neck is supple. On examination of his left shoulder, he is tender about the anterior subacromial space. He has moderate subacromial crepitus. Active range of motion, forward elevation 110 degrees, external rotation with the arm side 0 degrees internal rotation to L3. Motor strength is 4/5 for external rotation and 4/5 for abduction. Impingement test, Neer test are positive. He has pain with cross-body abduction. His distal neurovascular otherwise appears intact in the left upper extremity. MRI report 03/19/2020, left shoulder shows evidence of a supraspinatus tear with some retraction along with a moderate effusion. There appears to potentially be a superior labral tear as well. IMPRESSION: 1. Acute left rotator cuff tear. 2. Left acromioclavicular joint synovitis. 3. Possible superior labral tear, left shoulder. RECOMMENDATIONS: I talked to the patient at length regarding his condition and options. This point he is quite symptomatic and limited because of weakness and pain after this recent acute injury. After thorough discussion, he opts to proceed with surgery. We will plan to proceed with arthroscopic evaluation with probable subacromial decompression, rotator cuff repair, possible biceps tenotomy in addition to possible distal clavicular resection. Risks and benefits were discussed at length in layman's terms. We will likely perform that as an outpatient procedure. MMODL / IJN: [id number] /
[~2020-04-13 08:02] MED LIST: DEXAMETHASONE SOD PHOSPHATE 10 MG/ML 1 ML VIAL IV ONE; LACTATED RINGERS 1,000 ML IV SCH; LIDOCAINE 1% (10MG/ML) FOR IV START INTRADERMA PRN; MIDAZOLAM 2 MG/2 ML VIAL IV PRN; ONDANSETRON 4 MG/2 ML VIAL IVP ONE; fentaNYL (PF) 50 MCG/ML 2 ML AMP IV PRN
[2020-04-13] MEDS ORDERED: fentaNYL (PF) 50 MCG/ML 2 ML AMP ONE (09:46)
[2020-04-13] MEDS ORDERED: LIDOCAINE 1% INJ 10MG/ML (20 ML MDV) ONE (09:46)
[2020-04-13] MEDS ORDERED: PROPOFOL 10 MG/ML 20 ML VIAL IV ONE (09:46)
[2020-04-13] MEDS ORDERED: MIDAZOLAM 2 MG/2 ML VIAL ONE (09:46)
[2020-04-13] MEDS ORDERED: SUCCINYLCHOLINE CHLORIDE 100 MG/5 ML SYR IV ONE (09:46)
[2020-04-13] MEDS ORDERED: ROPIVACAINE 5 MG/ML 30 ML VIAL ONE (09:46)
[2020-04-13] MEDS ORDERED: EPINEPHrine (PF) 1 ML in SODIUM CHLORIDE 0.9% IRRIGATIO 3,000 ML IRRIGATION ONE ×8 (10:15)
[2020-04-13] MEDS ORDERED: LACTATED RINGERS 1,000 ML IV ONE ×2 (11:29)
--- NOTE | 2020-04-13 11:35 | P.OP ---
Date of Procedure: 04/13/20 Preoperative Diagnosis: Symptomatic left rotator cuff tear Postoperative Diagnosis: 5 cm retracted rotator cuff tear, previous rupture proximal biceps, acromioclavicular arthritis Procedure(s) Performed: Left shoulder arthroscopic subacromial decompression/distal clavicular resection/rotator cuff repair Implants: Arthrex 4.75 mm swivel lock anchor 2, 5.5 mm swivel lock anchor 2 Anesthesia: MELINDA, pelon Surgeon: Seth Reyes Film Historian #1: Ang Guerrero Estimated Blood Loss (ml): 10 Pathology: none sent Condition: stable Disposition: PACU Indications for Procedure: The patient's a 60-year-old gentleman who presents with significant left shoulder pain after a recent fall. His MRI showed a large rotator cuff tear with retraction. A discussion the risks and benefits of operative intervention versus conservative measures was made with the patient. He opted for procedure surgery. Operative risks to include infection, neurovascular injury, development of blood clots, possible tendon rerupture, possible need for subsequent procedures was discussed. Informed consent was obtained. Operative Findings: As below Description of Procedure: The patient was brought to the operating room, and after induction of general anesthesia was placed in a beachchair position. A preoperative interscalene block was placed for postoperative analgesia. I examined the left shoulder. There was no gross block to passive motion or gross glenohumeral instability. The left upper extremity was prepped and draped in normal fashion. The bony outlines the acromion, distal clavicle, and coracoid process were outlined with a skin marker. The glenohumeral joint was inflated with 50 mL of saline utilizing a spinal needle from posterior approach. A posterior portal was made through a 5 mm skin incision 1 cm medial and inferior to the posterior lateral border time. A blunt trocar was used to easily into the joint. Diagnostic arthroscopy was performed. An anterior portal was made just lateral to the coracoid process entering the joint above the subscapularis tendon. The subscapularis tendon appeared to be intact. Anterior labrum was intact. The inferior recess was inspected. The posterior labrum was intact. There was a previous rupture of the proximal biceps. The superior labrum was debrided back to a stable base with a motorized shaver. On inspection the rotator cuff, a large retracted rotator cuff tear was noted involving the supraspinatus, infraspinatus, and teres minor. The arthroscope was placed into the subacromial space. A lateral portal was made 2 centimeters inferior to the anterior lateral border of the acromion. I then assessed the rotator cuff and the supraspinatus was identified and was then tagged with a traction suture. Adhesions were broken down to help mobilize inspect the greater tuberosity. The posterior portion the cuff was scarred and retracted past the glenoid. I was unable to mobilize any of that tissue. The soft tissue on the undersurface of the acromion was debrided with a motorized shaver and electrocautery clearly defining the anterior medial and lateral borders as well as the distal clavicle. An anterior inferior acromioplasty was performed with a motorized benita starting anterolateral, then extending this posteriorly, then extending this medially. I converted to a flat acromion and this was verified in the posterior and lateral viewing portals. The distal 4 mm of clavicle was resected with a motorized benita as there was significant arthritis and there appeared to be some impingement into the subacromial space. The greater tuberosity was lightly decorticating with a shaver down to a bleeding bony surface. An accessory superior lateral portals made just off the lateral edge of the acromion for anchor placement. 2 anchors were then placed just off the articular surface with the appropriate starting awl. 4.75 mm anchors preloaded with #2 fiber tape were placed. Good purchase was obtained. These fiber tapes were then passed the rotator cuff with a scorpion suture passer. A lateral row was created crisscrossing these tapes. 5.5 mm swivel lock anchors x2 were placed laterally. Good purchase was obtained. Final arthroscopic view showed adequate compression at the footprint. The arthroscope was then removed. The portals were closed with simple 3-0 nylon sutures. A sterile dressing was applied in addition to an abductor brace. The patient was then awoken from general anesthesia and transferred to recovery room in good condition. Blood loss was estimated at 10 mL. No complications were incurred. Sponge and needle counts were correct in the case. Matt HOUSE assisted and the major components of the case to include arm positioning, anchor placement, and rotator cuff repair.
[2020-04-13 11:45] VITALS: TEMP 96.9
[2020-04-13] MEDS: HYDROmorphone 0.5 MG/0.5 ML SYRINGE IVP PRN ×2 (11:54→11:59)
[2020-04-13 12:31] VITALS: RESP 17
[2020-04-13 12:42] VITALS: BP 134/87; PULSE 57
--- NOTE | 2020-05-01 13:25 | P.ANPRN ---
Procedure Note - Anesthesia - Nerve Block Performed Left Interscalene Single Time Out Performed: Yes (850) Date of Procedure: 04/13/20 Procedure Start Time: 08:51 Procedure Stop Time: 08:56 Location of Patient: PreOp Indication: Acute Post-Operative Pain, Requested by Surgeon Specifically requested for management of pain by DrDanielle: Seth Reyes Sedation Type: Sedate with meaningful contact maintained Preparation: Sterile Prep Position: Supine Catheter: None Needle Types: Pajunk Needle Gauge: 21 Ultrasound used to visualize needle placement: Yes Ultrasound used to observe medication spread: Yes Injectate: 0.5% Ropivacaine (see comment for volume) (20cc) Blood Aspirated: No Pain Paresthesia on Injection Noted: No Resistance on Injection: Normal Image Stored and Saved: Yes Events: Uneventful and Well Tolerated
== END 2020-04-13 13:51 | disposition home or self-care (01) ==
LOC: OR 08:02
PROVIDERS: ATTEND Orthopaedic Surgery
DX: S46.012A Strain of muscle(s) and tendon(s) of the rotator cuff of left shoulder, initial encounter (principal); S46.212A Strain of muscle, fascia and tendon of other parts of biceps, left arm, initial encounter; M19.012 Primary osteoarthritis, left shoulder; M75.02 Adhesive capsulitis of left shoulder; M65.812 Other synovitis and tenosynovitis, left shoulder; E03.9 Hypothyroidism, unspecified; E78.2 Mixed hyperlipidemia; N40.1 Benign prostatic hyperplasia with lower urinary tract symptoms; N13.8 Other obstructive and reflux uropathy; E55.9 Vitamin D deficiency, unspecified; F51.01 Primary insomnia; G89.29 Other chronic pain; M54.9 Dorsalgia, unspecified; R42 Dizziness and giddiness; M17.0 Bilateral primary osteoarthritis of knee; R20.2 Paresthesia of skin; R20.8 Other disturbances of skin sensation; I10 Essential (primary) hypertension; K08.89 Other specified disorders of teeth and supporting structures; Z97.2 Presence of dental prosthetic device (complete) (partial); K21.9 Gastro-esophageal reflux disease without esophagitis; E66.01 Morbid (severe) obesity due to excess calories; Z68.34 Body mass index [BMI] 34.0-34.9, adult; Z88.5 Allergy status to narcotic agent; Z88.2 Allergy status to sulfonamides; Z91.81 History of falling; Z86.19 Personal history of other infectious and parasitic diseases; Z79.899 Other long term (current) drug therapy; Z79.1 Long term (current) use of non-steroidal anti-inflammatories (NSAID); Z79.890 Hormone replacement therapy; Z79.891 Long term (current) use of opiate analgesic; Z96.652 Presence of left artificial knee joint; Z98.890 Other specified postprocedural states; Z79.82 Long term (current) use of aspirin; Z83.3 Family history of diabetes mellitus; Z82.49 Family history of ischemic heart disease and other diseases of the circulatory system; W00.0XXA Fall on same level due to ice and snow, initial encounter; Y92.481 Parking lot as the place of occurrence of the external cause
CPT/HCPCS: 29824; 29827; 29826; 64415; 76942; C1713 ×2; J2250; J1100; J0690; J2405; J0171; J2001; J3010; J2795; J0330; J2704; J1170

== ENCOUNTER → 2020-08-29 | Outpatient (CLI) | payer OTHER ==
--- NOTE | 2020-08-29 17:21 | MR ---
EXAMINATION TYPE: MR brain wo con DATE OF EXAM: 08/29/2020 COMPARISON: MRI brain 10/19/2019 HISTORY: mild cognitive impairment TECHNIQUE: Multiplanar, multisequence imaging of the brain and brainstem is performed without IV cont rast. FINDINGS: Diffusion weighted images demonstrate no evidence of a recent infarct or other diffusion abnormality. There are redemonstrated mild nonspecific subcortical and periventricular white matter T2 FLAIR hype rintense foci, which are not significant changed from 10/19/2019 comparison. None of these foci demon strate restricted diffusion to suggest active demyelination. There is no extraaxial fluid collection or significant white matter signal abnormality. The ventricu lar system and cisternal spaces are normal in size and appearance. The brain volume is age appropria te. Midline structures demonstrate normal morphology. The craniocervical junction appears within normal limits. Normal vascular flow voids are present. Mucosal thickening of the right maxillary sinus. Ther e is redemonstrated fluid within the mastoid air cells, right greater than left. The globes are gross ly symmetric. IMPRESSION: 1. Mild white matter T2 FLAIR hyperintense foci, not significantly changed versus 10/19/2019 MRI comp arison. Findings are nonspecific with differential including sequela of chronic microvascular ischemi c change, hypertension, or migraine headaches. 2. Redemonstrated fluid within the mastoid air cells. Correlate for mastoiditis.
== END | disposition home or self-care (01) ==
LOC: RADMRIMAIN 10:15
PROVIDERS: ATTEND Family Medicine
DX: R90.89 Other abnormal findings on diagnostic imaging of central nervous system (principal); G31.84 Mild cognitive impairment of uncertain or unknown etiology
CPT/HCPCS: 70551

== ENCOUNTER → 2021-08-23 | Outpatient (CLI) | payer OTHER | END | disposition home or self-care (01) | LOC: LABWHC1 15:11 | PROVIDERS: ATTEND Orthopaedic Surgery | DX: Z01.812 Encounter for preprocedural laboratory examination (principal); M12.812 Other specific arthropathies, not elsewhere classified, left shoulder | CPT/HCPCS: 87070 ==

== ENCOUNTER 2021-09-24 08:39 | Day surgery (SDC) | payer OTHER ==
[2021-09-19 14:54] VITALS: BMI 34.4
--- NOTE | 2021-09-23 09:31 | HP ---
HISTORY AND PHYSICAL CHIEF COMPLAINT: Left shoulder pain and weakness. 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 It has worsened recently. He underwent left shoulder arthroscopic rotator cuff repair in April of 2020. Recently he is having pain with overhead activity and at night. He also notes profound weakness. He has tried therapy in addition to a recent injection, without much relief. He takes [place] for pain relief. PAST MEDICAL HISTORY: Significant for hypertension, hypothyroidism and arthritis. PAST SURGICAL HISTORY: Significant for left total knee arthroplasty, ankle surgery and previous left shoulder arthroscopy. CURRENT MEDICATIONS: Aspirin, Lipitor, meloxicam, [place], Synthroid, and triazolam. ALLERGIES: He has SENSITIVITY to MORPHINE; however, NO SUSAN DRUG ALLERGIES. FAMILY HISTORY: Significant for diabetes, heart disease and cancer. SOCIAL HISTORY: Significant for social alcohol use. REVIEW OF SYSTEMS: Sixteen-point review of systems otherwise reviewed and is noncontributory. PHYSICAL EXAMINATION: On examination, the patient is approximately 5 feet 10 inches, 240 pounds of endomorphic habitus. HEENT exam is nonfocal. Neck is supple. Active motion of the left shoulder: Forward elevation 90 degrees, external rotation with arm at side zero degrees, internal rotation to L2. Motor strength 4/5 for abduction and external rotation. Impingement test, Neer test, and Speed tests are positive. Passively I am able to forward-elevate him to 150 degrees. His distal neurovascular exam appears intact to the left upper extremity. Previous x-rays of the left shoulder obtained in the office show moderate degenerative changes involving the glenohumeral articulation in addition to diminished humeral head to acromial distance. IMPRESSION: 1. Left rotator cuff arthropathy. 2. History of left rotator cuff repair with subsequent re-rupture. RECOMMENDATIONS: I have talked to the patient at length regarding his condition along with treatment options. At this point he is quite limited and symptomatic because of pain and weakness despite previous conservative measures. After a thorough discussion, he opts to proceed with surgery. We will plan to proceed with left reverse total shoulder arthroplasty. Risks and benefits were discussed at length in layman's terms. We will potentially keep the patient for a 23-hour hold postoperatively. MMODL / IJN: [id number] /
[~2021-09-24 08:39] MED LIST changes: +ACETAMINOPHEN TAB 500 MG TAB PO PRN; -DEXAMETHASONE SOD PHOSPHATE 10 MG/ML 1 ML VIAL IV ONE; +MELOXICAM 7.5 MG TAB PO PRN; -MIDAZOLAM 2 MG/2 ML VIAL IV PRN; +TRANEXAMIC ACID 1,000 MG in SODIUM CHLORIDE 0.9% 100 ML IVPB PRN
[2021-09-24 09:34] VITALS: TEMP 97.5
[2021-09-24] MEDS ORDERED: MIDAZOLAM 2 MG/2 ML VIAL IVP ONE ×2 (10:02→10:21)
[2021-09-24] MEDS ORDERED: fentaNYL (PF) 50 MCG/ML 2 ML AMP IVP ONE ×2 (10:02→10:22)
[2021-09-24] MEDS ORDERED: DEXAMETHASONE SOD PHOSPHATE 4 MG/ML 1 ML VIAL IVP ONE (10:19)
[2021-09-24] MEDS ORDERED: PHENYLEPHRINE-0.9% NACL SYG 1,000 MCG/10 ML SYRINGE ONE (10:23)
[2021-09-24] MEDS ORDERED: NEOSTIGMINE 1 MG/ML 10 ML VIAL ONE (10:23)
[2021-09-24] MEDS ORDERED: LIDOCAINE 1% INJ 10MG/ML (20 ML MDV) ONE (10:23)
[2021-09-24] MEDS ORDERED: PROPOFOL 10 MG/ML 20 ML VIAL IV ONE (10:23)
[2021-09-24] MEDS ORDERED: MIDAZOLAM 2 MG/2 ML VIAL ONE (10:23)
[2021-09-24] MEDS ORDERED: ROPIVACAINE 5 MG/ML 30 ML VIAL ONE (10:23)
[2021-09-24] MEDS ORDERED: SUCCINYLCHOLINE CHLORIDE 100 MG/5 ML SYR IV ONE (10:23)
[2021-09-24] MEDS ORDERED: GLYCOPYRROLATE 0.2 MG/ML 2 ML VIAL ONE (10:23)
[2021-09-24] MEDS ORDERED: ePHEDrine 50 MG/ML 1 ML AMP ONE (10:23)
[2021-09-24] MEDS ORDERED: ROCURONIUM 10 MG/ML (5 ML VIAL) IV ONE (10:23)
[2021-09-24] MEDS ORDERED: fentaNYL (PF) 50 MCG/ML 2 ML AMP ONE (10:23)
[2021-09-24] MEDS ORDERED: ceFAZolin 1,000 MG in SODIUM CHLORIDE 0.9% 1,000 ML IRRIGATION ONE (10:59)
[2021-09-24] MEDS ORDERED: LACTATED RINGERS 1,000 ML IV ONE (11:52)
[2021-09-24] MEDS ORDERED: SENNOSIDES-DOCUSATE SODIUM 1 EACH TAB PO PRN (12:39)
[2021-09-24] MEDS ORDERED: HYDROcodone/APAP 5-325MG 1 EACH TAB PO PRN (12:39)
[2021-09-24] MEDS ORDERED: HYDROmorphone 0.5 MG/0.5 ML SYRINGE IVP PRN (12:39)
[2021-09-24] MEDS ORDERED: HYDROcodone/APAP 7.5-325MG 1 EACH TAB PO PRN (12:42)
--- NOTE | 2021-09-24 12:46 | P.OP ---
Date of Procedure: 09/24/21 Preoperative Diagnosis: Left rotator cuff arthropathy/rotator cuff retear Postoperative Diagnosis: Same Procedure(s) Performed: Left reverse total shoulder arthroplasty Implants: Depuy Delta Xtend size 12 press-fit humeral stem was sized 2 epiphysis, size 38 standard glenosphere, 38+12 articular surface, +10 glenosphere baseplate. Anesthesia: [facility], [facility] Surgeon: Seth Reyes Digital Press Operator #1: Ang Guerrero Assistant #2: Kolby Frederick Estimated Blood Loss (ml): 150 Pathology: other (Humeral head) Condition: stable Disposition: PACU Indications for Procedure: The patient is a 61 -year-old male who presents with progressive left shoulder pain and weakness for the past several years. He underwent rotator cuff repair about a year and half ago. He's had increasing symptoms despite conservative measures. A discussion of the risks and benefits of operative intervention versus continued conservative measures was made with patient. He opted to proceed with surgery. Operative risks to include infection, neurovascular injury, development of blood clots, possible fracture, possible instability and need for subsequent procedures was discussed. Informed consent was obtained. Operative Findings: As below Description of Procedure: The patient was brought to the operating room, and after induction of general anesthesia was placed in a beachchair position. The bony prominences were appropriately padded. I examined the left shoulder. There was no gross block to passive motion.. The left upper extremity was prepped and draped in normal fashion. The bony outlines the coracoid process, distal clavicle, and acromion were outlined with a skin marker. A pulse centimeter deltopectoral incision was made lateral to the coracoid process. Skin was incised sharply. Subcutaneous tissues were divided bluntly. Electrocautery was used for hemostasis. The cephalic vein was identified and gently retracted laterally with the deltoid. The deltopectoral was bluntly developed. Subdeltoid adhesions were then released. The self-retaining retractor was placed. The conjoined tendon was retracted medially and the deltoid laterally. The proximal biceps previously been ruptured. Pseudocapsule was excised. A large retracted rotator cuff tear was noted. The subscapularis was peeled off the lesser tuberosity and tagged with #2 Ethibond suture. The head was then exposed. The shoulder was dislocated. A starting hole was made in line with the humeral shaft. The canal was reamed by hand up to size 12. There was good distal chatter. The cutting guide was then placed. I planned on 20 of retroversion. The humeral head cut was then made. The bone was removed in one fragment. Residual inferomedial osteophytes were removed flush with the [place] cortical bone. Attention was then paid towards preparing the glenoid. An anterior and posterior retractors placed. The labrum was released from the [ ] o'clock position. Remaining biceps was removed as well. A guidepin was placed in the inferior aspect of the glenoid with the guide slightly tilting inferior. The reamer was used down to a bleeding bony surface. The central peg hole was drilled. The standard +10 baseplate was inserted with good purchase. Inferior, superior, and anterior locking screws the appropriate length were placed. Good purchase was obtained. The 38 mm glenosphere was inserted over a guidewire. This was fully seated. Care was taken to avoid any soft tissue interposition. Attention was then paid towards preparing the proximal humerus. The appropriate broach was placed and 20 of retroversion and was fully seated. An eccentric size 2 epiphyseal reamer was utilized. A size 12 stem with a size 2 epiphysis was placed and 20 of retroversion. Trial reduction was obtained with a 38 mm + 12 articular surface. The shoulder was taken through range of motion. He was felt to be stable in flexion and extension with internal and external rotation. I felt there was adequate restorationism of soft tissue tension judging off the conjoined tendon. The shoulder was gently dislocated. The trial components were then removed. The final size 12 press-fit stem along with a size 2 epiphysis was fully seated. There was good rotational stability. The 38 mm + 12 articular surface was impacted. The shoulder again was gently reduced and taken through range of motion. Again it was felt to be stable in all planes. Pulsatile lavage was utilized. The subscapularis was a attached to the lesser tuberosity with #2 Ethibond suture. The deltopectoral interval was closed with interrupted 2-0 Vicryl sutures. The skin was reapproximated with 3-0 subcuticular Prolene suture. Steri-Strips were applied. A sterile dressing was applied. A sling was placed. The patient was awoken from general anesthesia and transferred to recovery room in good condition. Blood loss was estimated at 300 mL. No complications were incurred. Sponge and needle counts were correct at the end the case. Matt Guerrero and Kolby HOUSE assisted during the major components of the case to include exposure, glenoid and humeral preparation, implantation, and closure.
--- NOTE | 2021-09-24 12:55 | P.ANPRN ---
Procedure Note - Anesthesia - Nerve Block Performed Left Interscalene Single Time Out Performed: Yes (1000) Date of Procedure: 09/24/21 Procedure Start Time: 10:01 Procedure Stop Time: 10:07 Location of Patient: PreOp Indication: Acute Post-Operative Pain, Requested by Surgeon Specifically requested for management of pain by DrDanielle: Seth Reyes Sedation Type: Sedate with meaningful contact maintained Preparation: Sterile Prep Position: Supine Catheter: None Needle Types: Pajunk Needle Gauge: 21 Ultrasound used to visualize needle placement: Yes Ultrasound used to observe medication spread: Yes Injectate: 0.5% Ropivacaine (see comment for volume) (30cc) Blood Aspirated: No Pain Paresthesia on Injection Noted: No Resistance on Injection: Normal Image Stored and Saved: Yes Events: Uneventful and Well Tolerated
--- NOTE | 2021-09-24 13:20 | XR ---
Limited left shoulder HISTORY: Postop Single frontal view of the left shoulder Patient is status post reverse shoulder arthroplasty. Lucencies present in the soft tissues. There is anatomic alignment in this single view. Left lung apex as visualized is normal. IMPRESSION: Orthopedic follow-up.
[2021-09-24] MEDS ORDERED: HYDROcodone/APAP 10-325MG 1 EACH TAB PO PRN (13:29)
[2021-09-24 13:37] VITALS: RESP 18
[2021-09-24 14:41] VITALS: PULSE 78
[2021-09-24 15:12] VITALS: BP 116/66
[2021-09-25] MEDS ORDERED: RIVAROXABAN 10 MG TAB PO SCH (09:00)
== END 2021-09-24 15:34 | disposition home or self-care (01) ==
LOC: OR 08:39
PROVIDERS: ATTEND Orthopaedic Surgery
DX: M19.012 Primary osteoarthritis, left shoulder (principal); M75.102 Unspecified rotator cuff tear or rupture of left shoulder, not specified as traumatic; I10 Essential (primary) hypertension; E03.9 Hypothyroidism, unspecified; K21.9 Gastro-esophageal reflux disease without esophagitis; Z20.822 Contact with and (suspected) exposure to COVID-19; Z96.652 Presence of left artificial knee joint; Z83.3 Family history of diabetes mellitus; Z82.49 Family history of ischemic heart disease and other diseases of the circulatory system; Z80.9 Family history of malignant neoplasm, unspecified; E78.5 Hyperlipidemia, unspecified; Z98.890 Other specified postprocedural states; Z97.2 Presence of dental prosthetic device (complete) (partial); Z79.1 Long term (current) use of non-steroidal anti-inflammatories (NSAID); Z79.82 Long term (current) use of aspirin; Z79.890 Hormone replacement therapy; Z79.891 Long term (current) use of opiate analgesic; Z79.899 Other long term (current) drug therapy; Z88.5 Allergy status to narcotic agent
CPT/HCPCS: 64415; 76942; 88300; 87635; 73020; 23472; C1776; J2250; J1100; J2710; J0690 ×2; J2405; J2001; J3010; J2795; J2370; J0330; J2704

== ENCOUNTER 2023-05-01 11:53 | Day surgery (SDC) | payer OTHER ==
[2023-04-29 11:57] VITALS: BMI 33.0
[2023-05-01 13:09] VITALS: RESP 16; TEMP 97.8
[2023-05-01] MEDS ORDERED: LACTATED RINGERS 1,000 ML IV ONE (13:14)
[2023-05-01] MEDS ORDERED: LIDOCAINE 2% INJ 20 MG/ML (2 ML VIAL) ONE (13:52)
[2023-05-01] MEDS ORDERED: PROPOFOL 10 MG/ML 20 ML VIAL IV ONE (13:52)
--- NOTE | 2023-05-01 14:06 | P.PCN ---
Date of Procedure: 05/01/23 Procedure(s) Performed: BRIEF HISTORY: Patient is a 63-year-old, pleasant, white male scheduled for an upper endoscopy as a part of evaluation of GERD and intermittent dysphagia to solids for the last 4 months duration.. He takes Prevacid as needed PROCEDURE PERFORMED: Esophagogastroduodenoscopy with dilation and biopsy. PREOPERATIVE DIAGNOSIS: GERD and intermittent dysphagia to solids. IV sedation per anesthesia. PROCEDURE: After informed consent was obtained, the patient was brought into the endoscopy unit. IV sedation was administered by Anesthesia under continuous monitoring. Initially the Olympus GIF-140 video endoscope was inserted into the mouth. Esophagus intubated without any difficulty. It was gradually advanced into the stomach and duodenum and carefully examined. The bulb and the second part of the duodenum appeared normal. The scope at this time was withdrawn to the stomach, adequately insufflated with air, and upon careful examination, mucosa of the antrum, body, cardia and the fundus appeared normal. The scope was then withdrawn into the esophagus. The GE junction was located at 39 cm from the incisors. Small hiatal hernia noted. There was a distal esophageal stricture identified and this was dilated using 15 mm TTS balloon for 30 seconds follow patient was brisk oozing identified and hence further dilation was not performed. The mucosa of the distal esophagus appeared very 80 matters with erosions and thickened mucosal folds and multiple biopsies were done from the distal esophagus to rule out years of age esophagitis. The proximal esophagus appeared normal. There were no erosions or ulcerations seen and the patient tolerated the procedure well. IMPRESSION: 1. Distal esophageal stricture status post balloon dilation using 15 mm TTS balloon as described above. 2. Linear erosions in the distal esophagus with thickened mucosal folds and superficial mucosal rings suspicious for eosinophilic esophagitis status post multiple biopsies 3 Small hiatal hernia. RECOMMENDATIONS: The findings of this examination were discussed with the patientas well as his family. He was advised to start on Prevacid 30 mg twice daily and follow antrum reflux measures. He'll be seen in office in 2-3 weeks.].
[2023-05-01] MEDS ORDERED: LACTATED RINGERS 1,000 ML IV SCH (14:13)
[2023-05-01 14:30] VITALS: BP 137/76; PULSE 53
== END 2023-05-01 14:40 | disposition home or self-care (01) ==
LOC: ORWHC2ENDO 11:53
PROVIDERS: ATTEND Internal Medicine Gastroenterology
DX: K22.2 Esophageal obstruction (principal); K44.9 Diaphragmatic hernia without obstruction or gangrene; K21.00 Gastro-esophageal reflux disease with esophagitis, without bleeding; E78.5 Hyperlipidemia, unspecified; E03.9 Hypothyroidism, unspecified; M19.90 Unspecified osteoarthritis, unspecified site; Z79.890 Hormone replacement therapy; Z79.82 Long term (current) use of aspirin; Z79.899 Other long term (current) drug therapy; Z88.5 Allergy status to narcotic agent
CPT/HCPCS: 88305; 43239; 43249; J2704; J2001; C1726

== ENCOUNTER → 2024-01-01 | Outpatient (CLI) | payer OTHER ==
--- NOTE | 2024-01-01 18:09 | XR ---
EXAMINATION TYPE: XR chest 2V DATE OF EXAM: 01/01/2024 5:06 PM CLINICAL INDICATION:Male, 63 years old with history of R051,U071,[id number],E860 COUGH,COVID,ALT MENT,DEHY D; [facility] COMPARISON: Chest radiographs from 02/20/2020 TECHNIQUE: XR chest 2V Frontal and lateral views of the chest. FINDINGS: Lungs/Pleura: There is no evidence of pleural effusion, focal consolidation, or pneumothorax. Pulmonary vascularity: Unremarkable. Heart/mediastinum: Cardiomediastinal silhouette is unremarkable. Musculoskeletal: No acute osseous pathology. IMPRESSION: No acute cardiopulmonary disease/process.
== END | disposition home or self-care (01) ==
LOC: RADXRYALE 16:42
PROVIDERS: ATTEND Family Medicine
DX: R05.1 Acute cough (principal); U07.1 COVID-19; R41.82 Altered mental status, unspecified; E86.0 Dehydration
CPT/HCPCS: 71046

== ENCOUNTER → 2024-05-24 | Outpatient (CLI) | payer OTHER ==
--- NOTE | 2024-05-24 15:42 | XR ---
EXAMINATION TYPE: XR chest 2V DATE OF EXAM: 05/24/2024 3:34 PM CLINICAL INDICATION:Male, 64 years old with history of R0602 SOB; [facility] COMPARISON: Chest radiographs from 01/01/2024 TECHNIQUE: XR chest 2V Frontal view of the chest. FINDINGS: Lungs/Pleura: There is no evidence of pleural effusion, focal consolidation, or pneumothorax. Pulmonary vascularity: Unremarkable. Heart/mediastinum: Cardiomediastinal silhouette is unremarkable. Musculoskeletal: Multiple level degenerative disc disease changes seen throughout the spine. Left juanpablo ulder arthroplasty appears intact. Other findings: None IMPRESSION: No acute cardiopulmonary disease/process.
== END | disposition home or self-care (01) ==
LOC: RADXRYALE 15:24
PROVIDERS: ATTEND Family Medicine
DX: R06.02 Shortness of breath (principal)
CPT/HCPCS: 71046

== ENCOUNTER → 2024-05-26 | Outpatient (CLI) | payer OTHER | END | disposition home or self-care (01) | LOC: LABWHC1 13:22 | PROVIDERS: ATTEND Orthopaedic Surgery | DX: Z01.812 Encounter for preprocedural laboratory examination (principal); M17.11 Unilateral primary osteoarthritis, right knee; Z22.322 Carrier or suspected carrier of Methicillin resistant Staphylococcus aureus | CPT/HCPCS: 87070 ==

== ENCOUNTER 2024-06-21 11:30 | Day surgery (SDC) | payer OTHER ==
[~2024-06-21 11:30] MED LIST changes: -ACETAMINOPHEN TAB 500 MG TAB PO PRN; +DEXAMETHASONE SOD PHOSPHATE 4 MG/ML 1 ML VIAL ONE; +GLYCOPYRROLATE 0.2 MG/ML 2 ML VIAL ONE; +LACTATED RINGERS 1,000 ML BAG ONE; -LACTATED RINGERS 1,000 ML IV SCH; -LIDOCAINE 1% (10MG/ML) FOR IV START INTRADERMA PRN; +LIDOCAINE 1% INJ 10MG/ML (20 ML MDV) ONE; +MELOXICAM 7.5 MG TAB ONE; -MELOXICAM 7.5 MG TAB PO PRN; +MIDAZOLAM 2 MG/2 ML VIAL ONE; +NEOSTIGMINE 1 MG/ML 10 ML VIAL ONE; -ONDANSETRON 4 MG/2 ML VIAL IVP ONE; +ONDANSETRON 4 MG/2 ML VIAL ONE; +PROPOFOL 10 MG/ML 20 ML VIAL IV ONE; +ROCURONIUM 10 MG/ML (5 ML VIAL) IV ONE; +ROPIVACAINE 1,100 MG, SODIUM CHLORIDE 0.9% 500 ML 330 ML, EMPTY PAIN BALL 1 EACH MISCELLANE ONE; +ROPIVACAINE 5 MG/ML 30 ML VIAL ONE; +SODIUM CHLORIDE 0.9% (PF) VIAL 0 ML ONE; +SODIUM CHLORIDE 0.9% 1,000 ML BAG ONE; +SODIUM CHLORIDE 0.9% 50 ML BAG IV ONE; +SUCCINYLCHOLINE CHLORIDE 200 MG/10 ML VIAL IV ONE; +TRANEXAMIC 1,000 MG/100ML-NACL PREMIX BAG ONE; -TRANEXAMIC ACID 1,000 MG in SODIUM CHLORIDE 0.9% 100 ML IVPB PRN; +ceFAZolin 1,000 MG VIAL ONE; -fentaNYL (PF) 50 MCG/ML 2 ML AMP IV PRN; +fentaNYL (PF) 50 MCG/ML 2 ML AMP ONE
[2024-06-21] MEDS ORDERED: HYDROcodone/APAP 10-325MG 1 EACH TAB ONE ×2 (14:10)
--- NOTE | 2024-06-24 15:56 | OP ---
OPERATIVE REPORT DATE OF SERVICE : 06/21/2024 PREOPERATIVE DIAGNOSIS: Right knee severe tricompartmental osteoarthrosis. POSTOPERATIVE DIAGNOSIS: Right knee severe tricompartmental osteoarthrosis. PROCEDURE: Right total knee tqniufszoeyq-ykhqyasn-iextalgds stabilized. ANESTHESIA: General with regional block. PROPERTY DISPOSAL MANAGER: HARSH Sawyer PREP: DuraPrep. INDICATION FOR PROCEDURE: Patient is a 64-year-old male who presents with progressive right knee pain secondary to osteoarthrosis despite conservative measures. A discussion of the risks and benefits of operative intervention versus continued conservative measures was made with the patient. He opted to proceed with surgery. Operative risks to include infection, neurovascular injury, development of blood clot, fracture, possible component loosening/failure, and possible need for subsequent procedures were discussed. Informed consent was obtained. DESCRIPTION OF PROCEDURE: The patient was brought to the operating room and after induction of general anesthesia, the right lower extremity was prepped and draped in a normal fashion. The tourniquet was inflated to 270 mmHg. A longitudinal incision extending 3 fingerbreadths above the superior pole of patella to the medial aspect of the tibial tubercle was then made. The skin and subcutaneous tissues were divided sharply. Electrocautery was used for hemostasis. A medial parapatellar arthrotomy was then performed. The medial soft tissues to include the superficial and deep portions of the medial collateral ligament were then elevated subperiosteally. The patella was everted. A portion of the retropatellar fat pad was excised sharply. The knee was then flexed. The anterior cruciate ligament was sacrificed. Retractors were placed. A starting hole was made in the distal femur 1 cm anterior to the posterior cruciate ligament origin. An intramedullary guide was then gently inserted planning on 10 mm distal resection with 5 degree valgus distal cut. The cutting block was pinned in place. The distal cut was then made. The posterior referencing sizing guide was utilized. I felt the size 7 was most appropriate. The cutting block was pinned in place planning on a flush cut to the anterior cortex. The anterior, posterior, and chamfer cuts were then made. The bone fragments were removed. The notch guide was placed and the notch cut was then made. The bone was removed in 1 fragment. The trial size 7 component was placed and was fully seated. There was good anterior to posterior and medial to lateral fit. The distal pedicles were drilled. The trial component was then removed. Attention was then paid toward preparing the proximal tibia. An extramedullary tibial guide was utilized in line with the tibial shaft and 2nd metatarsal distally. I planned on 1 mm resection from the medial compartment. A posterior retractor was placed to protect the posterior neurovascular bundle. The proximal tibial cut was then made and the bone was removed in one fragment. The remnants of the medial and lateral menisci were excised at the capsular junction with electrocautery. The tibia was then sized appropriately at a size 7. The trial femoral and tibia components were placed along with a 12 mm articular surface. I was able to obtain full flexion and extension with good stability with varus valgus stress. After several flexion and extension cycles, the tibial rotation was marked with electrocautery in line with the medial one-third of the tibial tubercle. Attention was then paid toward preparing the patella. The patellar reamer was utilized, taking this down to 14 mm of bone stock. A good flush cut was made. The patella sized most appropriate at 38 mm. The pedicles were drilled. I did medialize the component. The trial component was placed and the knee was taken through range of motion. I had good patellofemoral tracking with no hands technique. The trial components were then removed. The tibia was prepared in the appropriate rotation with the appropriate extended drill planning on an extended tibial stem and keel punch. The trial components were again placed and the knee was taken through range of motion. The trial components were then removed. The bony surfaces were prepared with pulsatile lavage and dried. Additional drill holes were made in the proximal medial tibia to facilitate cement interdigitation. The tibial component was then cemented in place and was fully seated. Excess cement was removed. The femoral component was cemented in place and fully seated. Again, excess cement was removed. A trial 12 mm articular surface was placed and the knee was put in full extension. The patellar component was cemented in place. After the cement had sufficiently hardened, the knee was again taken through range of motion. Again, I was able to obtain full flexion and extension with good stability with varus and valgus stress. The trial articular surface was removed and the final one inserted. This was gently impacted. Care was taken to avoid any soft tissue interposition. Pulsatile lavage was utilized. The tourniquet was then deflated with approximately 1 hour of total tourniquet time. The medial parapatellar arthrotomy was closed with a running #2 Ethibond suture. The subcutaneous tissues were reapproximated with interrupted 2-0 Vicryl sutures. I did obtain final hemostasis with electrocautery. There was minimal drainage. Therefore, a deep drain was not placed. The second dose of TXA was given. The skin was reapproximated with 3-0 subcuticular Stratafix suture. Skin tape and adhesive were applied. A sterile dressing was then applied. The patient was then awoken from general anesthesia and transferred to the recovery room in good condition. Blood loss is estimated at 50 cc. No complications were incurred. Sponge and needle counts were correct at the end of the case. IMPLANTS USED: [employer] size 7 cemented femoral component, size 7 cemented tibial component, 12 mm articular surface, 38 mm cemented patellar component. This is a posterior stabilized implant. MMODL / IJN: [id number] /
--- NOTE | 2024-07-19 10:51 | XR ---
Rufus Edwards ID: [id number] : 1960 EXAMINATION TYPE: XR knee limited 2 views RT DATE OF EXAM: 06/21/2024 Comparison: None Clinical History: 64-year-old male postoperative evaluation Findings: Imaging shows placement of revision, short stemmed right total knee arthroplasty. Both distal femoral and tibial tray components of the prosthesis appear well seated without periprosthetic fracture. Ali gnment grossly anatomic. Anterior soft tissue swelling with scattered soft tissue air as well as intr a-articular air related to recent operation. Impression: Uncomplicated postoperative appearance right total knee arthroplasty.
== END 2024-06-21 15:48 ==
LOC: OR 11:30
PROVIDERS: ATTEND Orthopaedic Surgery
DX: M17.11 Unilateral primary osteoarthritis, right knee (principal); E78.5 Hyperlipidemia, unspecified; E07.9 Disorder of thyroid, unspecified; N40.0 Benign prostatic hyperplasia without lower urinary tract symptoms; K21.9 Gastro-esophageal reflux disease without esophagitis; Z79.890 Hormone replacement therapy; Z88.5 Allergy status to narcotic agent; Z79.899 Other long term (current) drug therapy
CPT/HCPCS: 64448; 64999

== ENCOUNTER → 2025-01-12 | Outpatient (CLI) | payer OTHER ==
--- NOTE | 2025-01-12 11:21 | CT ---
EXAMINATION TYPE: CT sinus wo con DATE OF EXAM: 01/12/2025 10:42 AM COMPARISON: 06/28/2011. CLINICAL INDICATION: Male, 64 years old with history of J32.0 chronic sinusitis; , Chronic maxillary and frontal sinusitis. Rt side pain TECHNIQUE: Multiple thin axial images were obtained through the paranasal sinuses without the use of IV contrast. Additional coronal and sagittal reformatted images were submitted for evaluation. Contrast used: none Oral contrast used: none CT DLP: 526.40 mGycm, Automated exposure control for dose reduction was used. FINDINGS: Frontal sinuses: Hypoplastic right frontal sinus. Mild mucosal thickening of the frontal sinuses. Fro ntal Recess: Mucosal thickening with mild narrowing Maxillary Sinuses: Normally developed with scattered mild mucosal thickening.. Maxillary Infundibula([facility]): Mild narrowing due to mucosal thickening on the left and obstructed right ., No Genevieve cells identified. Ethmoid sinuses: Normally developed with scattered mucosal thickening. Ethmoidal notch.: Protected an d abutting the lateral lamina. Sphenoid sinuses: Normally developed with scattered mucosal thickening.. There is sellar sphenoid sin us pneumatization without evidence of dehiscence. No dehiscence of carotid canal. No evidence of opt ic nerve dehiscence within the sphenoid sinus. No evidence of Onodi cells. Sphenoethmoidal recesses: Mildly narrowed due to mucosal thickening.. Nasal septum: Rightward deviated anteriorly. Nasal Turbinates: Mild mucosal thickening worse on the right inferior turbinate. Mastoid air cells & middle ears: The air cells are clear. The middle ears are grossly unremarkable. Modified Soft tissues & Brain: Partially seen without gross abnormality. Globes are intact. Other: Cribriform plate demonstrates symmetric Keros classification type 2 cribriform plate. No evidence of bony dehiscence of skull base. Lamina papyracea is intact without evidence of remote orbital fracture or orbital prolapse into the e thmoid sinus. Bilaterally aphakia. IMPRESSION: 1. Mild to moderate paranasal sinus disease worse in the ethmoid air cells and maxillary sinuses. Fro ntal sinuses are relatively clear. Significant mucosal sinus disease. 2. The right ostiomeatal unit is obstructed the left is patent mild narrowing of the frontonasal and sphenoethmoidal recesses due to mucosal thickening.. [facility], , 01/12/2025 11:19 AM
--- NOTE | 2025-01-12 18:07 | CA ---
Exercise Stress Test Report Name: Rufus Edwards Exam Date: 01/12/2025 10:40 Exam Location: [place] Stress Ht (in): 70 Wt (lb): 252 BSA: 2.30 Ordering Phys: Blake Calles DO Referring Phys: Blake Calles DO Technologist: Stone Kim Age: 64 Gender: M : 1960 Procedure CPT: Indications: R06.02 SOB ICD-10 Codes: Patient History: Medications: lipitor Meds past 24 hrs: Pretest Chest Pain: STRESS TEST He Protocol Exercise Duration (min:sec): 07:[address] Depressions (mm): 0 Angina Score: 0 Rodriguze Score: 7.22 Resting HR (bpm): 59 Peak HR (bpm): 135 Resting BP (mmHg): 144 / 79 Peak BP (mmHg): 220 / 88 MPHR: 156 Target HR: 133 % MPHR: 87 METS: 8.2 Total Dose: Peak Dose: Atropine: Double Product: 25425 BP Response: Stress Termination: TARGET HR REACHED/MAX EXERTION Stress Symptoms: FATIGUE Stress Summary: The patient's target heart rate was achieved ECG ANALYSIS Resting ECG: Sinus rhythm. Normal conduction. No arrhythmias. Normal repolarization. Stress ECG: No ECG evidence of ischemia with exercise. CONCLUSIONS Patient falls into low-risk group (DTS >= +5). This associates the patient with an annual CV mortality <= 0.5%. Average exercise tolerance Normal electrocardiographic response to exercise with no evidence of stress-induced ischemia Dr. Jose Loza MD (Electronically Signed) Final Date: 12 January 2025 18:07
== END | disposition home or self-care (01) ==
LOC: RADCTMAIN 10:10
PROVIDERS: ATTEND Family Medicine
DX: J32.0 Chronic maxillary sinusitis (principal); J34.89 Other specified disorders of nose and nasal sinuses; R06.02 Shortness of breath
CPT/HCPCS: 70486; 93017